=== PATIENT | male | born 1935 | race Caucasian/White ===

== ENCOUNTER 2020-12-24 17:36 | Emergency (ER) | payer MEDICARE, OTHER ==
[~2020-12-24] VITALS: Ht 177.8 cm; Wt 73.2 kg
[~2020-12-24 17:36] MED LIST: DABI150C PO; FAMO-79 PO; FURO-93 PO; GUAI400T57 PO; ISOS60TA36 PO; LOSA100T14 PO; METO100T5 PO; MULT-658 PO; POTA20TA14 PO; ROSU20TA2 PO
[2020-12-24 18:10] LABS: BASOPHILS % (AUTO) 1 % (0-1); EOSINOPHILS % (AUTO) 3 % (1-7); LYMPHOCYTES % (AUTO) 18 % (22-44); MEAN CORPUSCULAR HEMOGLOBIN 32.2 pg (27.5-34.5); MEAN PLATELET VOLUME 8.6 fL (7.4-10.4); MONOCYTES % (AUTO) 11 % (2-9); NEUTROPHILS % (AUTO) 68 % (42-75); PLATELET COUNT 143 x10^3/uL (130-400); RED BLOOD COUNT 3.94 x10^6/uL (4.38-5.82); RED CELL DISTRIBUTION WIDTH 13.8 % (9.4-14.8)
[2020-12-24 18:24] LABS: CHLORIDE 106 mmol/L (98-107)
[2020-12-24 18:37] LABS: ALANINE AMINOTRANSFERASE 18 U/L (12-78); ALBUMIN 3.8 g/dL (3.4-5.0); ALKALINE PHOSPHATASE 84 U/L (45-117); ANION GAP 7 mmol/L (5-15); BILIRUBIN,TOTAL 0.6 mg/dL (0.2-1.0); CALCIUM 9.3 mg/dL (8.5-10.1); CREATININE 1.33 mg/dL (0.7-1.3); TOTAL PROTEIN 8.2 g/dL (6.4-8.2); TROPONIN I < 0.015 ng/mL (0.000-0.045)
--- NOTE | 2020-12-24 19:47 | NUR ---
EKG ON CHART- ASSUMING DONE IN TRIAGE.
[2020-12-24 21:42] LABS: TROPONIN I 0.027 ng/mL (0.000-0.045)
[2020-12-24 22:08] VITALS: BP 138/64
--- NOTE | 2020-12-24 22:08 | NUR ---
Patient given discharge instructions and they have confirmed that they understand the instructions. Patient ambulatory with steady gait. NAD, all questions answered appropriately, denies additional needs at this time. No personal belongings left in room after discharge.
== END 2020-12-24 22:10 | disposition home or self-care (01) ==
LOC: ED 19:20
DX: R07.89 Other chest pain (principal); I20.0 Unstable angina; I49.3 Ventricular premature depolarization; I10 Essential (primary) hypertension; E78.5 Hyperlipidemia, unspecified; I25.810 Atherosclerosis of coronary artery bypass graft(s) without angina pectoris; Z87.891 Personal history of nicotine dependence
CPT/HCPCS: 36415; 71045; 80053; 84484; 85025; 93005; 99285